=== PATIENT | male | born 1955 | race Caucasian/White ===

== ENCOUNTER → 2016-10-12 | Day surgery (SDC) | payer BC ==
[~2016-10-12] MED LIST: ACETAMINOPHEN PO; ALLERGY RELIEF10 MG PO; ALTACE10 MG PO; ASPIRIN81 M2 PO; DILTIAZEM 24HR240 M2 PO; FLOMAX0.4 M1 PO; LIPITOR40 MG PO; SYNTHROID0.05 MG PO
--- NOTE | ~2016-10-12 | OR ---
Unit #: [id number] #: [id number] Patient: NNAMDI BURCIAGA [id number] [address] [place], [place] [address] [id number] O MR#: [id number] NAME: NNAMDI BURCIAGA ROOM: Date of Procedure: 10/12/2016 Admission Date: 10/12/2016 Surgeon: Campbell Jimenez M.D. : 1955 Attending Physician: Josh Jimenez Primary Care Physician: Trevon Maynard M.D. [facility]ENTER OPERATIVE NOTE PROCEDURE PERFORMED Lumbar epidural steroid injection under x-ray guided needle placement with provider administered conscious sedation. PREOPERATIVE DIAGNOSES 1. Acute lumbar radiculitis. 2. Spinal stenosis, lumbosacral spine. 3. Herniated disk, L5-S1. 4. Degenerative joint disease, lumbosacral spine. 5. Degenerative disk disease, lumbosacral spine. INDICATIONS FOR PROCEDURE The patient presents today status post 2 previous steroid injections approximately 4 months ago for an acute radiculitis, which had failed to respond to conservative therapy. The patient states he got good results with this, approximately 80% relief for 3 to 4 months. However, over the course of the past 4 to 6 weeks, he has been developed and return of his pain and is advancing in a crescendo pattern and has failed to being relieved with his usual ongoing and continuous conservative measures. After discussing risks and benefits of proceeding today with a lumbar approach epidural steroid injection, the patient agreed this would be the appropriate course of action. DESCRIPTION OF PROCEDURE He was then taken to the operating room, where he was prepped and draped in a sterile manner. Standard monitors were applied. He was sedated with 2 mg of IV Versed and lumbar epidural space accessed at the L5-S1 level using loss of resistance technique and x-ray guidance. Needle placement was confirmed with injection of 2 mL of Omnipaque. There was good superior and inferior flow at this L5-S1 injected level. Following successful needle placement confirmation, the patient received an injectate containing 4 mL normal saline and 80 mg of methylprednisolone. He tolerated this procedure well. He was discharged home with followup instructions, which include an offer to return to this clinic as early as 01/25/2017 as we could be of further service to him. He was instructed if he was asymptomatic at the time of being schedule appointment to simply not keep that appointment and to follow up at such point in future, so we could be of further service. He has further instructed if he reached a point where if he felt the shots were not being a benefit to him to simply not keep any further appointments and to follow up with his primary and/or referring provider for referral to more advanced pain management care. Unit #: [id number] #: [id number] Patient: NNAMDI BURCIAGA Dictated by... Min De Guzman/jose maria TD: 10/13/2016 01:10 JOB #: [id number] [facility] OPERATIVE NOTE Page 1 of 1 X Josh Jimenez MD X PROCEDURE OPERATIVE NOTE
== END | disposition home or self-care (01) ==
LOC: CCSC 09:29
DX: M51.17 Intervertebral disc disorders with radiculopathy, lumbosacral region (principal); M48.07 Spinal stenosis, lumbosacral region; E03.9 Hypothyroidism, unspecified; Z88.8 Allergy status to other drugs, medicaments and biological substances; Z85.828 Personal history of other malignant neoplasm of skin; Z98.890 Other specified postprocedural states
CPT/HCPCS: J1040; J2250

== ENCOUNTER → 2017-01-25 | Day surgery (SDC) | payer BC ==
--- NOTE | ~2017-01-25 | OR ---
Unit #: [id number] #: [id number] Patient: NNAMDI BURCIAGA [id number] [address] [place], [place] [address] [id number] O MR#: [id number] NAME: NNAMDI BURCIAGA ROOM: Date of Procedure: 01/25/2017 Admission Date: 01/25/2017 Surgeon: Campbell Jimenez M.D. : 1955 Attending Physician: Campbell Jimenez M.D. Referring Physician: Campbell Jimenez M.D. Primary Care Physician: Trevon Maynard M.D. SUR[facility] CENTER OPERATIVE NOTE PROCEDURE PERFORMED Lumbar epidural steroid injection under x-ray guided needle placement with provider administered conscious sedation. PREOPERATIVE DIAGNOSES 1. Acute lumbar radiculitis. 2. Spinal stenosis, lumbosacral spine. 3. Herniated disk, L5-S1. 4. Degenerative joint disease, lumbosacral spine. 5. Degenerative disk disease, lumbosacral spine. INDICATIONS FOR PROCEDURE The patient presents today with longstanding history of chronic lumbar radicular pain secondary to his underlying degenerative processes. He is generally fairly well managed medically with ongoing continuous medical therapy as well as self-directed physical activity. He occasionally does experience exacerbations, which today it only responded to interventional pain management procedures. His usual amount of response to an epidural steroid injections approximately 80% to 100% for 10 to 12 weeks. He presents today approximately 4 months since his last epidural steroid injection with a 1-month history of increasing pain in a crescendo pattern, which has failed to respond to and/or broken through his usual ongoing conservative measures. His pain complaints are consistent with past and consistent with his x-ray studies. After discussing risks and benefits of proceeding today with a lumbar approach epidural steroid injection return date of May 31. The patient agreed this would be the appropriate course of action. DESCRIPTION OF PROCEDURE He was then taken to the operating room, where she was prepped and draped in sterile manner. Standard monitors were applied. He was sedated with 2 mg of IV Versed and the lumbar epidural space was accessed at the L5-S1 level using loss of resistance technique and x-ray guidance. Needle placement was confirmed with injection of 2 mL of Omnipaque. There was good superior and inferior flow at this L5-S1 needle placement. Following successful needle placement confirmation which required an x-ray time of 4 seconds, the patient received an injectate containing 4 mL normal saline, 80 mg of methylprednisolone. He tolerated this procedure well. He was discharged to home with followup instructions, which include return dates as described above. Dictated by... Unit #: [id number] #: [id number] Patient: PATRCIANNAMDI Min De Guzman/jose maria TD: 01/26/2017 07:02 JOB #: [id number] CC: Trevon Maynard M.D. [facility] OPERATIVE NOTE Page 1 of 1 X Josh Jimenez MD X PROCEDURE OPERATIVE NOTE
== END | disposition home or self-care (01) ==
LOC: CCSC 10:00
DX: M47.27 Other spondylosis with radiculopathy, lumbosacral region (principal); M51.17 Intervertebral disc disorders with radiculopathy, lumbosacral region; M48.07 Spinal stenosis, lumbosacral region
CPT/HCPCS: J1040; J2250